=== PATIENT | male | born 1980 | race Caucasian/White ===

== ENCOUNTER 2025-06-03 09:33 | Emergency (ER) | payer SELFPAY ==
[2025-06-03] VITALS (28 sets, daily range): BP systolic 106–119; BP diastolic 48–92; PULSE 61–78; RESP 12–21; TEMP 36.7; O2SAT 92–98
--- NOTE | 2025-06-03 09:30 | RT.EKG_ITS ---
APPROVED REPORT Exam: Resting ECG Reason for Exam: syncope, elevated heart rate Patient Location: E HR:63 bpm ECG Measurements Heart Rate 63 AXIS KS 129 P 62 QRSd 100 QRS 46 QT 457 T 61 QTc 466 Conclusion Sinus rhythm, rate 63 No interval abnormalities No STEMI No priors available for comparison
[2025-06-03] MEDS: Lactated Ringers 1,000 ML 1000 ML IV (10:04)
[2025-06-03 10:11] LABS: Abs Immature Grans 0.02 10^3/uL (0.0-0.06); HCT 44.8 % (40.0-50.0); HGB 15.8 g/dL (13.5-17.5); Immature Grans % 0.3 %; MCH 30.5 pg (27.0-33.0); MCHC 35.3 % (32.0-36.0); MCV 87 fL (80-95); MPV 9.8 fL (8.0-11.0); Platelet Count 181 10^3/uL (130-400); RBC 5.18 10^6/uL (4.36-5.78); RDW 11.9 % (11.8-14.1); RDW-SD 37.8 fL; WBC 6.05 10^3/uL (4.4-10.8)
[2025-06-03 10:38] LABS: Magnesium 1.9 mg/dL (1.6-2.6)
[2025-06-03 10:40] LABS: ALT 25 U/L (10-49); AST 22 U/L (<34); Albumin 4.5 g/dL (3.2-5.0); Alkaline Phosphatase 59 U/L (46-116); Anion Gap 11 mmol/L (3-11); BUN 19 mg/dL (9-23); Bilirubin, Total 0.8 mg/dL (0.2-1.2); CO2 23.0 mmol/L (20.0-31.0); Calcium 9.7 mg/dL (8.3-10.6); Chloride 105 mmol/L (98-107); Glucose 147 mg/dL (74-106); Potassium 3.8 mmol/L (3.5-5.1); Sodium 139 mmol/L (136-145); Total Protein 7.7 g/dL (5.7-8.2)
--- NOTE | 2025-06-03 10:43 | W.ED.GENAD ---
Discharge Plan Disposition Patient Disposition: Home Condition: Stable Discharge Details Clinical Impression: Near syncope Primary Care Provider: None,None ED Provider: Malini Page Home Meds and New Rx's Prescriptions: Continued citalopram [Celexa] 40 mg tablet 40 mg PO DAILY 30 Days Qty: 30 0RF Discharge Instructions Instructions: Near Fainting (DC) Additional Instructions: You were seen in the emergency department today for evaluation after a near fainting episode. In our department you had a full physical examination, had a reassuring EKG and laboratory studies that did not show any abnormalities which would explain your symptoms. You received IV fluids, and had reassuring vital signs. It is possible that you were slightly dehydrated, I recommend that you increase your hydration with water or electrolyte containing fluids, and you can wear compression socks when up and about at work to reduce Fatigue and improve circulation. I do recommend that you establish with a primary care provider once you are settled in [place] where you are moving. Please follow-up with your primary care provider in the next few days to discuss this visit and any symptoms that change, worsen, or persist. Thank you for allowing us to be part of your care. Stand Alone Forms: Portal Information, Work Release Discharge Data Discharge Date/Time-TO BE ENTERED AT DEPARTURE: 06/03/25 12:01 HPI General Mode of arrival: ambulatory. Date/Time Provider Initiated Documentation: 06/03/25 09:41. Limitations to Documentation: no limitations. Information obtained by: patient and old records reviewed. HPI Narrative: This is a 45-year-old male patient with a past medical history significant for depression, presenting for evaluation after near syncopal episode. The patient reports that he has been feeling unwell for the last several days, actually woke up this morning feeling much improved, but states that he has recently had some fatigue, subjective fevers, and runny/stuffy nose. He was scraping off his car this morning, states that he was not wearing gloves and his hands felt very cold, and then when he sat back in the car he had an episode of near syncope with lightheadedness and tunnel vision, felt some bilateral numbness in his hands and arms, states that he did not entirely lose consciousness but felt that he was going to, did not fall or injure himself. This event has since resolved, and he is no longer experiencing any lightheadedness, vision changes, numbness or tingling. He has never had an episode of fainting before. The patient is currently residing here in the [facility] but is moving to [place] within the next few weeks, planning to establish care there. Related Data Home Medications ?Medication ?Instructions ?Recorded ?Confirmed citalopram 40 mg tablet (Celexa) 40 mg PO DAILY 1 month #30 tabs 06/03/25 Previous Rx's ?Medication ?Instructions ?Recorded citalopram 40 mg tablet (Celexa) 40 mg PO DAILY 1 month #30 tabs 06/03/25 Allergies Allergy/AdvReac Type Severity Reaction Status Date / Time aripiprazole (From Abilify) Allergy Mild Dizziness/L Verified 06/03/25 09:55 ighthead chloramphenicol (From Allergy Mild Unknown Verified 06/03/25 09:54 Chloromycetin) Sulfa (Sulfonamide Allergy Mild Unknown Verified 06/03/25 09:54 Antibiotics) General Stated Complaint: Dizzy/Sync JUSTO: 3 Exam Narrative Exam Narrative: Gen: Awake and alert, in no apparent distress HEENT: Non-icteric sclera, PERRL, EOMs are full without nystagmus Neck: Supple Lungs: No apparent respiratory distress, normal respiratory effort. Lung sounds clear and equal bilaterally without wheezes, rhonchi, rales CV: Appears well perfused, heart with regular rate and rhythm, strong distal pulses Abdomen: Non-distended, soft, nontender to palpation without rigidity, rebound, or guarding. MSK: Moves 4 extremities without apparent limitation in ROM. No peripheral edema Skin: Visualized skin without rashes, cyanosis. Neuro: Normal Gait, symmetrical strength and sensation x 4 extremities, no facial asymmetry. Speaks in full, clear sentences. Psych: Appropriate for situation. Course Vital Signs Vital signs: Vital Signs Pulse 63 06/03/25 09:47 Pulse Oximetry 95 06/03/25 09:47 Temperature 36.7 C 06/03/25 09:49 Temperature Source Oral 06/03/25 09:49 Pulse 63 06/03/25 10:16 Pulse 63 06/03/25 10:16 Respiratory Rate 14 06/03/25 10:16 Respiratory Effort Normal 06/03/25 10:15 Respiratory Depth Normal 06/03/25 10:15 Respiratory Pattern Normal 06/03/25 10:15 Blood Pressure 113/58 L 06/03/25 10:16 Blood Pressure Mean 73 06/03/25 10:16 Blood Pressure Position Sitting 06/03/25 09:49 Pulse Oximetry 96 06/03/25 10:16 Oxygen Delivery Method Room Air 06/03/25 09:49 Oxygen Flow Rate 0 06/03/25 09:49 Pain Level 0 06/03/25 09:49 Lab/Test Results Lab/Test Results: Laboratory Tests Range/Units 06/03/25 09:56 WBC (4.4-10.8) 10^3/uL 6.05 RBC (4.36-5.78) 10^6/uL 5.18 Hgb (13.5-17.5) g/dL 15.8 Hct (40.0-50.0) % 44.8 MCV (80-95) fL 87 MCH (27.0-33.0) pg 30.5 MCHC (32.0-36.0) % 35.3 RDW (11.8-14.1) % 11.9 Plt Count (130-400) 10^3/uL 181 MPV (8.0-11.0) fL 9.8 Immature Gran % % 0.3 Neutrophils % % 62.5 Lymphocytes % % 24.5 Monocytes % % 6.4 Eosinophils % % 5.6 Basophils % % 0.7 Nucleated RBC % (0.0-0.3) % 0.0 Absolute Neutrophils (1.2-6.7) 10^3/uL 3.78 Absolute Lymphocytes (1.2-3.4) 10^3/uL 1.48 Absolute Monocytes (0.1-0.8) 10^3/uL 0.39 Absolute Eosinophils (0.0-0.7) 10^3/uL 0.34 Absolute Basophils (0.0-0.2) 10^3/uL 0.04 Sodium (136-145) mmol/L 139 Potassium (3.5-5.1) mmol/L 3.8 Chloride (98-107) mmol/L 105 Carbon Dioxide (20.0-31.0) mmol/L 23.0 Anion Gap (3-11) mmol/L 11 BUN (9-23) mg/dL 19 Creatinine (0.73-1.18) mg/dL 0.87 Est GFR (CKD-EPI 2020) (mL/min/1.73m2) 94.80 Glucose (74-106) mg/dL 147 H Calcium (8.3-10.6) mg/dL 9.7 Magnesium (1.6-2.6) mg/dL 1.9 Total Bilirubin (0.2-1.2) mg/dL 0.8 AST (<34) U/L 22 ALT (10-49) U/L 25 Alkaline Phosphatase (46-116) U/L 59 Total Protein (5.7-8.2) g/dL 7.7 Albumin (3.2-5.0) g/dL 4.5 Medical Decision Making This is a 45-year-old male patient presenting for evaluation of near syncope. Differential includes but is not limited to orthostasis, vasovagal syndrome, certainly consider metabolic and electrolyte derangement, anemia, dehydration and kidney dysfunction especially given his recent reported illness. The patient has no chest pain but I considered ACS, arrhythmia. The patient did not have any seizure activity or true loss of consciousness, is neuro intact I have low concern for intracranial abnormality such as stroke, mass effect, seizure or intracranial hemorrhage. We obtained an EKG which I reviewed, which shows a normal sinus rhythm with a rate of 63, with no evidence of ischemia, interval abnormality, or ectopy. We will obtain labs to include CBC, CMP, magnesium, and will provide the patient with a liter of IV fluids. I will obtain orthostatic vital signs following fluid rehydration. I did discuss viral testing with the patient, he states he had a negative COVID test at home and is not interested in retesting as he had all his vaccines this year. -I independently interpreted the laboratory studies, which show no significant leukocytosis, anemia, or thrombocytopenia. The chemistry panel is without evidence of electrolyte abnormality, kidney dysfunction, or liver injury. Orthostatics were negative, the patient has had no recurrence of his near syncopal symptoms. I did monitor the patient on telemetry and note no arrhythmia or other cardiac causes of syncope, and I feel that this patient had a low enough risk event that it is reasonable to trial outpatient management. I did crisis intervention counselor the patient on slow transitions, provided him with compression socks given a report of calf and leg fatigue after long days at work, and counseled him on improving hydration with water and electrolyte containing fluids. I also counseled the patient to ensure that he establishes with a primary care provider immediately upon arriving in his new home state. At this time, the patient has had a full medical evaluation and is safe for discharge to home. They are hemodynamically stable, ambulatory, and tolerating PO. They are understanding of the follow-up plan and return precautions. They left our facility without incident. Malini Page MD [facility] All Active Problems (Updated 06/03/25 @ 11:24 by Malini Page MD) Near syncope (Acute) Social History Smoking/Tobacco Use Status: Never Smoking risk assessment performed?: Yes Alcohol Intake: never Drug use: Never Substance use type: does not use Do you feel safe at home: Yes Do you feel safe in your relationship?: Yes
== END 2025-06-03 12:01 | disposition home or self-care (01) ==
PROVIDERS: Emergency Provider Emergency Medicine
DX: R55 Syncope and collapse (principal); R50.9 Fever, unspecified
CPT/HCPCS: 99283; 99284; 80053; 93005; 96360; 96361; 83735; 85025; 93010